=== PATIENT | male | born 1955 | race Caucasian/White ===

== ENCOUNTER 2017-06-13 11:28 | Day surgery (SDC) | payer OTHER ==
[2017-06-13] MEDS ORDERED: DIPHENHYDRAMINE HCL 50 MG/ML VIAL ONE (12:08)
[2017-06-13] MEDS ORDERED: ONDANSETRON HCL INJ/PF 4 MG/2 ML SDV ONE (12:08)
[2017-06-13] MEDS ORDERED: NALOXONE HCL INJ/PF 0.4 MG/1 ML SDV ONE (12:08)
[2017-06-13] MEDS ORDERED: GLUCAGON,HUMAN RECOMB 1 MG INJ ONE (12:09)
[2017-06-13] MEDS ORDERED: FLUMAZENIL INJ 0.5 MG/5 ML VIAL ONE (12:09)
[2017-06-13] MEDS ORDERED: EPINEPHRINE INJ 1 MG/10 ML DISP.SYRIN ONE (12:09)
[2017-06-13] MEDS: MIDAZOLAM 2 MG/2 ML INJ ONE ×3 (12:20→12:27)
[2017-06-13] MEDS: FENTANYL CITRATE INJ/PF 100 MCG/2 ML AMPUL ONE ×4 (12:22→12:40)
--- NOTE | 2017-06-13 13:05 | Operative Report ---
Operative Report DATE OF SURGERY: 06/13/17 Operative Report: The risks, benefits and alternatives of the procedure including risks of bleeding, perforation requiring surgery are explained to the patient in detail and informed consent was obtained. Patient is taken back to the endoscopy suite and placed in a left, lateral decubital position. Timeout was called. Conscious sedation medications administered. A rectal examination is done which did not reveal any masses, tears or fissures. An Olympus videoscope was inserted into the patient's rectum. The scope was then carefully advanced all the way to the cecum. Cecum was identified by the usual anatomical landmarks including the ileocecal valve as well as the appendiceal office. Photodocumentation is obtained. Prep is good. Scope was then sequentially pulled back via the various segments of the colon including the ascending colon , hepatic flexure, transverse colon, splenic flexure, descending colon and finding the rectosigmoid portions of the colon. Retroflexion maneuvers performed. PREOPERATIVE DIAGNOSIS: Colorectal cancer screening POSTOPERATIVE DIAGNOSIS: Sessile, cecal polyp removed via snare polypectomy. Rectal polyp pedunculated removed via similar technique. Internal hemorrhoids OPERATION: Colonoscopy with snare polypectomy SURGEON: ANNAMAIRE ENGLISH ANESTHESIA: Moderate Sedation - 6 mg of Versed, 150 mcg of fentanyl. Conscious sedation monitoring time 30 minutes. TISSUE REMOVED OR ALTERED: As noted above. COMPLICATIONS: None. ESTIMATED BLOOD LOSS: None. INTRAOPERATIVE FINDINGS: As described above. PROCEDURE: Patient tolerated procedure well. No immediate postprocedure complications are noted. Patient discharged in good condition. Discharge date 06/13/2017. Discharge diet: Regular. Discharge activity: Regular. 2-3 week follow-up to discuss findings. 3-5 year surveillance colonoscopy. We will await pathology. Patient is instructed to call the office or proceed to the emergency room should there be any further problems or questions.
[2017-06-13 13:50] VITALS: BP 133/74
== END 2017-06-13 13:55 | disposition home or self-care (01) ==
LOC: END 11:28
PROVIDERS: ATTEND Internal Medicine Gastroenterology
PROC: 0DBH8ZX Excision of Cecum, Via Natural or Artificial Opening Endoscopic, Diagnostic (ICD-10-PCS; 2017-06-13)
PROC: 0DBP8ZX Excision of Rectum, Via Natural or Artificial Opening Endoscopic, Diagnostic (ICD-10-PCS; principal; 2017-06-13 12:00)
DX: Z12.11 Encounter for screening for malignant neoplasm of colon (principal); D12.8 Benign neoplasm of rectum; D12.0 Benign neoplasm of cecum; K64.8 Other hemorrhoids; Z87.891 Personal history of nicotine dependence
CPT/HCPCS: 45385; 88305 ×2; J2250; J3010; J0171; J1200; J1610; J2310; J2405; J3490

== ENCOUNTER → 2017-06-16 | Outpatient (CLI) | payer OTHER ==
--- NOTE | 2017-06-17 11:12 | RADIOLOGY REPORT (SQ) ---
EXAM DESCRIPTION: PET CT LIMITED COMPLETED DATE/TIME: 06/16/2017 7:03 pm REASON FOR STUDY: SOLITARY PULMONARY NODULE R91.1 SOLITARY PULMONARY NODULE J98.4 OTHER DISORDERS OF LUNG COMPARISON: [facility] CT chest 06/16/2013 RADIONUCLIDE AND DOSE: 12.6 mCi F18 FDG The route of agent administration: Intravenous FASTING BLOOD SUGAR: 71 mg/dl CONTRAST TYPE AND DOSE: No CT contrast given. TECHNIQUE: Blood glucose level was verified. Above dose of FDG was injected intravenously. 2-D seg mented attenuation correction images were obtained from the base of the skull to the midthighs. Nonc ontrast CT images were obtained for attenuation correction and fusion with emission images. CT image s were performed without oral or intravenous contrast and are not sensitive for parenchymal lesions. A series of overlapping emission PET images were obtained. Images reviewed and manipulated at [facility] work station by the radiologist. Images stored on PACS. LIMITATIONS: None. FINDINGS: HEAD AND NECK: No areas of abnormal metabolic activity in the soft tissues of the head and neck. CHEST: A well-circumscribed soft tissue density nodule is present with central calcification. This i s in the medial right upper lobe or upper right mediastinum, dorsal to the internal mammary artery an d vein, with intact fat planes between it and the ascending aorta and superior vena cava. Overall, t his measures 5 x 4.3 cm in diameter on axial image 95, with Hounsfield units of 2.7. This is worriso me for low-grade malignancy. This lesion measures 3.5 x 2.9 cm in size on outside CT 06/16/2013. No other hypermetabolic lesions in the chest. No adenopathy. ABDOMEN AND PELVIS: No areas of abnormal metabolic activity in the abdomen or pelvis. Expected physi ologic activity is present in the genitourinary system and bowel. PROXIMAL LOWER EXTREMITIES: No areas of abnormal metabolic activity in the soft tissues of the lower extremities. BONES: There is diffuse increased metabolic activity throughout the thoracic and lumbar spine bone ma rrow ranging from 2.9 to [address] FINDINGS: No additional significant findings on the noncontrast CT images. OTHER: Liver background activity 2.5 SUV. Blood pool background activity 1.6 SUV. IMPRESSION: Hypermetabolic nodule in the right anterior mediastinum or medial right upper lobe. No associated adenopathy. TECHNICAL DOCUMENTATION: JOB ID: [id number] [facility] [place]- All Rights Reserved
== END ==
LOC: RAD 15:55
PROVIDERS: ATTEND Internal Medicine Medical Oncology
DX: R91.1 Solitary pulmonary nodule (principal)
CPT/HCPCS: 78814; A9552